=== PATIENT | male | born 1950 | race Caucasian/White ===

== ENCOUNTER → 2016-07-26 | Outpatient (CLI) | payer BC, MEDICARE ==
[~2016-07-26] MED LIST: /TIOT18INH INH; ACTIVITY; ASPI325T PO; ASPIRIN PO; ATROVENT; CEFT500T; DIET; ECOT325T5; FISH1000 PO; LISI20TA5; LISI20TA5 PO; MILKSUS; MULTIVIT PO; OMEP20TA7 PO; PLAV75TA2 PO; PRAV40TA; PRAVASTATIN PO; PRED10TA2; PRED20TA; PRIL20CA; THERGRAN; TRIC145T19 PO; VENTAER IN; VIT D 2000 PO; VITAMIN D; XOPE1.252; [UNRECOGNIZED DRUG - OTHER]; fish oil
[2016-07-26 07:36] LABS: ALBUMIN 4.1 GM/DL (3.2-5.2); ALBUMIN/GLOBULIN RATIO 1.21 (1.00-1.93); BILIRUBIN,TOTAL 0.4 MG/DL (0.2-1.0); CREATININE FOR GFR 1.49 MG/DL (0.70-1.30); GLOMERULAR FILTRATION RATE 50.1 (>49); POTASSIUM SERUM 4.5 MEQ/L (3.5-5.1); TOTAL PROTEIN 7.5 GM/DL (6.4-8.2)
[2016-07-26 07:44] LABS: MEAN CORPUSCULAR HEMOGLOBIN 30.8 pg (27.0-33.0); MEAN CORPUSCULAR HGB CONC 33.6 g/dl (32.0-36.5); MEAN CORPUSCULAR VOLUME 91.8 fl (80.0-96.0); RED CELL DISTRIBUTION WIDTH 13.8 % (11.5-14.5); WHITE BLOOD COUNT 7.5 K/mm3 (4.0-10.0)
== END ==
LOC: M LAB 06:10
PROVIDERS: ATTEND Family Medicine
DX: N18.3 Chronic kidney disease, stage 3 (moderate) (principal); E78.2 Mixed hyperlipidemia

== ENCOUNTER → 2017-03-23 | Outpatient (CLI) | payer BC, MEDICARE ==
--- NOTE | 2017-03-27 10:39 | SLEEPCENT ---
DATE OF PROCEDURE: 03/23/2017 ORDERED BY: Dr. Stu Ryan. Nocturnal polysomnography was performed for evaluation of sleep apnea syndrome symptoms in this patient with a history of excessive somnolence and snoring complicated by advanced obstructive lung disease and cardiac disease. 8 hours and 23 minutes of data were reviewed. There were 426 minutes of sleep identified. Sleep latency was normal at 8 minutes Rapid eye movement (REM) latency was normal at 63 minutes. Sleep architecture was fairly well preserved early in the study. Fragmentation entered later. Overall sleep efficiency was 85.5%. EKG showed a sinus rhythm with an average heart rate of 56 beats per minute. Rate variability was seen surrounding respiratory events. Rate ranged 40-80. EEG showed fairly normal wave forms for awake and sleep. Some mild alpha intrusion to non-REM stages. There were 130 respiratory events identified of 10 seconds in duration or greater for an apnea-hypopnea index of 18.3. The events were not exclusive to sleep stage nor body posture. There were primarily obstructive. Arousals from respiratory events occurred 8 times per hour. Oxygen desaturations were seen into the 80s. There was minimal limb activity and remaining measures of sleep physiology were normal. IMPRESSION: Moderate obstructive sleep apnea syndrome, (G47.33). Apnea-hypopnea index 18.3. RECOMMENDATION: The patient should be encouraged to return to the sleep disorder center or pressure therapy. In the interim, alcohol and sedative avoidance should be practiced and caution exercised during the operation of motor vehicles. cc: Gael Mead MD
== END ==
LOC: M SLEEP 20:00
PROVIDERS: ATTEND Internal Medicine Pulmonary Disease
DX: J44.9 Chronic obstructive pulmonary disease, unspecified (principal)

== ENCOUNTER → 2017-03-31 | Outpatient (CLI) | payer BC, MEDICARE ==
--- NOTE | 2017-03-31 18:28 | REP ---
Low-dose chest CT without contrast: History: Lung cancer screening study. Comparison screening CT study is from 04/18/2016. CT findings: Biapical pleuroparenchymal scarring is seen. A fairly advanced emphysematous changes are noted throughout the upper lobes. No new or progressive nodular density is seen. There is a granulomatous calcification in the left lower lobe just above the left hemidiaphragm. Some inspissated endobronchial secretions are seen in the left lower lobe. No other endobronchial abnormality is appreciated. There is evidence of a stent in the left common carotid artery unchanged. Impression: Negative low-dose screening chest CT. No change from 04/18/2016. Evidence of COPD. Signed by Jj White MD 03/31/2017 08:03 P
== END ==
LOC: M RAD 17:28
PROVIDERS: ATTEND Internal Medicine Pulmonary Disease
DX: J44.9 Chronic obstructive pulmonary disease, unspecified (principal)

== ENCOUNTER → 2017-06-18 | Outpatient (CLI) | payer BC, MEDICARE ==
[2017-06-18 06:58] LABS: MEAN CORPUSCULAR HEMOGLOBIN 31.4 pg (27.0-33.0); MEAN CORPUSCULAR HGB CONC 34.3 g/dl (32.0-36.5); MEAN CORPUSCULAR VOLUME 91.5 fl (80.0-96.0); PLATELET COUNT, AUTOMATED 225 10^3/uL (150-450); WHITE BLOOD COUNT 5.7 10^3/uL (4.0-10.0)
[2017-06-18 07:16] LABS: ALBUMIN 3.9 GM/DL (3.2-5.2); ALBUMIN/GLOBULIN RATIO 1.26 (1.00-1.93); BILIRUBIN,TOTAL 0.2 MG/DL (0.2-1.0); CALCIUM LEVEL 8.8 MG/DL (8.8-10.2); CREATININE FOR GFR 1.35 MG/DL (0.70-1.30); POTASSIUM SERUM 4.2 MEQ/L (3.5-5.1)
== END ==
LOC: M LAB 06:15
PROVIDERS: ATTEND Family Medicine
DX: I73.9 Peripheral vascular disease, unspecified (principal); N18.3 Chronic kidney disease, stage 3 (moderate); E78.2 Mixed hyperlipidemia

== ENCOUNTER → 2017-07-09 | Outpatient (CLI) | payer BC, MEDICARE | LOC: M RAD 17:04 | DX: G45.8 Other transient cerebral ischemic attacks and related syndromes (principal) | CPT/HCPCS: 93880 ==

== ENCOUNTER → 2018-01-30 | Outpatient (CLI) | payer BC, MEDICARE | LOC: M RAD 09:55 | DX: I65.23 Occlusion and stenosis of bilateral carotid arteries (principal); I70.0 Atherosclerosis of aorta; G45.8 Other transient cerebral ischemic attacks and related syndromes | CPT/HCPCS: 93880 ==

== ENCOUNTER → 2018-02-16 | Outpatient (CLI) | payer BC, MEDICARE ==
[2018-02-16 16:11] LABS: BASO % 0.6 % (0.0-1.0); EOS # 0.1 10^3/uL (0.0-0.50); EOS % 1.8 % (0.0-3.0); HEMATOCRIT 39.3 % (42.0-52.0); HEMOGLOBIN 13.4 g/dl (13.5-17.5); IMMATURE GRANULOCYTE % 0.4 % (0-3.0); LYMPH # 1.7 10^3/uL (1.5-4.5); LYMPH % 24.1 % (24.0-44.0); MEAN CORPUSCULAR HEMOGLOBIN 31.4 pg (27.0-33.0); MEAN CORPUSCULAR HGB CONC 34.1 g/dl (32.0-36.5); MONO # 0.6 10^3/uL (0.0-0.8); MONO % 7.9 % (0.0-5.0); NEUTROPHILS # 4.7 10^3/uL (1.8-7.7); NEUTROPHILS % 65.2 % (36.0-66.0); PLATELET COUNT, AUTOMATED 206 10^3/uL (150-450); RED BLOOD COUNT 4.27 10^6/uL (4.30-6.10); RED CELL DISTRIBUTION WIDTH 12.9 % (11.5-14.5); WHITE BLOOD COUNT 7.1 10^3/uL (4.0-10.0)
[2018-02-16 16:29] LABS: ANION GAP 5 MEQ/L (8-16); BLOOD UREA NITROGEN 16 MG/DL (7-18); CALCIUM LEVEL 8.6 MG/DL (8.8-10.2); CARBON DIOXIDE LEVEL 28 MEQ/L (21-32); CHLORIDE LEVEL 108 MEQ/L (98-107); CREATININE FOR GFR 1.26 MG/DL (0.70-1.30); GLOMERULAR FILTRATION RATE > 60.0 (>49); GLUCOSE, FASTING 81 MG/DL (70-100); SODIUM LEVEL 141 MEQ/L (136-145)
== END ==
LOC: M LAB 15:18
DX: I70.213 Atherosclerosis of native arteries of extremities with intermittent claudication, bilateral legs (principal); I65.23 Occlusion and stenosis of bilateral carotid arteries
CPT/HCPCS: 80048

== ENCOUNTER → 2018-02-25 | Outpatient (CLI) | payer BC, MEDICARE ==
[~2018-02-25] MED LIST changes: -/TIOT18INH INH; -ACTIVITY; -ASPI325T PO; -ASPIRIN PO; -ATROVENT; -CEFT500T; -DIET; -ECOT325T5; -FISH1000 PO; +HEPARIN 1,000 UNITS/ML 10ML VIAL (FOR RADIOLOGY& DIALYSIS ONLY) As Ordered; +ISOVUE-300 61% 50ML VIAL (Q9967) As Ordered; +LIDOCAINE 2% MDV 20 ML VIAL As Ordered; -LISI20TA5; -LISI20TA5 PO; +MIDAZOLAM INJ 2 MG/2 ML VIAL (J2250) As Ordered; -MILKSUS; -MULTIVIT PO; -OMEP20TA7 PO; -PLAV75TA2 PO; -PRAV40TA; -PRAVASTATIN PO; -PRED10TA2; -PRED20TA; -PRIL20CA; -THERGRAN; -TRIC145T19 PO; -VENTAER IN; -VIT D 2000 PO; -VITAMIN D; -XOPE1.252; -[UNRECOGNIZED DRUG - OTHER]; +fentaNYL 100 MCG/2 ML INJECTION (J3010) As Ordered; -fish oil
== END | disposition home or self-care (01) ==
LOC: M IRPRO 06:31
DX: I70.212 Atherosclerosis of native arteries of extremities with intermittent claudication, left leg (principal); I10 Essential (primary) hypertension; J44.9 Chronic obstructive pulmonary disease, unspecified; I25.10 Atherosclerotic heart disease of native coronary artery without angina pectoris; E78.00 Pure hypercholesterolemia, unspecified; Z95.828 Presence of other vascular implants and grafts; Z86.73 Personal history of transient ischemic attack (TIA), and cerebral infarction without residual deficits
CPT/HCPCS: 37224

== ENCOUNTER → 2018-03-18 | Outpatient (CLI) | payer BC, MEDICARE ==
[~2018-03-18] MED LIST changes: -HEPARIN 1,000 UNITS/ML 10ML VIAL (FOR RADIOLOGY& DIALYSIS ONLY) As Ordered; -ISOVUE-300 61% 50ML VIAL (Q9967) As Ordered; +ISOVUE-370 76% 100ML VIAL (Q9967) As Ordered; -LIDOCAINE 2% MDV 20 ML VIAL As Ordered; -MIDAZOLAM INJ 2 MG/2 ML VIAL (J2250) As Ordered; -fentaNYL 100 MCG/2 ML INJECTION (J3010) As Ordered
== END ==
LOC: M RAD 13:49
DX: I65.23 Occlusion and stenosis of bilateral carotid arteries (principal); I74.2 Embolism and thrombosis of arteries of the upper extremities; Z95.5 Presence of coronary angioplasty implant and graft
CPT/HCPCS: Q9967

== ENCOUNTER → 2018-03-31 | Outpatient (CLI) | payer BC, MEDICARE ==
[~2018-03-31] MED LIST changes: +ISOVUE-300 61% 50ML VIAL (Q9967) As Ordered; -ISOVUE-370 76% 100ML VIAL (Q9967) As Ordered; +LIDOCAINE 2% MDV 20 ML VIAL As Ordered; +MIDAZOLAM INJ 2 MG/2 ML VIAL (J2250) As Ordered; +fentaNYL 100 MCG/2 ML INJECTION (J3010) As Ordered
== END | disposition home or self-care (01) ==
LOC: M IRPRO 07:36
DX: I70.211 Atherosclerosis of native arteries of extremities with intermittent claudication, right leg (principal); I70.0 Atherosclerosis of aorta; Z87.891 Personal history of nicotine dependence; Z95.820 Peripheral vascular angioplasty status with implants and grafts
CPT/HCPCS: 37224

== ENCOUNTER → 2018-04-16 | Outpatient (CLI) | payer BC, MEDICARE | LOC: M RAD 06:31 | DX: I70.213 Atherosclerosis of native arteries of extremities with intermittent claudication, bilateral legs (principal) | CPT/HCPCS: 93925 ==

== ENCOUNTER → 2018-05-04 | Outpatient (REF) | payer BC, MEDICARE | LOC: M LAB REF 13:21 | DX: R05 Cough (principal); J44.9 Chronic obstructive pulmonary disease, unspecified | CPT/HCPCS: 87205 ==

== ENCOUNTER → 2018-06-09 | Outpatient (CLI) | payer BC, MEDICARE ==
[2018-06-09 07:05] LABS: HEMATOCRIT 40.5 % (42.0-52.0); HEMOGLOBIN 13.9 g/dl (13.5-17.5); MEAN CORPUSCULAR HEMOGLOBIN 31.3 pg (27.0-33.0); MEAN CORPUSCULAR HGB CONC 34.3 g/dl (32.0-36.5); MEAN CORPUSCULAR VOLUME 91.2 fl (80.0-96.0); PLATELET COUNT, AUTOMATED 333 10^3/uL (150-450); RED BLOOD COUNT 4.44 10^6/uL (4.30-6.10); RED CELL DISTRIBUTION WIDTH 12.9 % (11.5-14.5); WHITE BLOOD COUNT 6.7 10^3/uL (4.0-10.0)
[2018-06-09 07:30] LABS: ALBUMIN 3.8 GM/DL (3.2-5.2); ALBUMIN/GLOBULIN RATIO 1.19 (1.00-1.93); ALKALINE PHOSPHATASE 85 U/L (45-117); ALT/SGPT 25 U/L (12-78); ANION GAP 7 MEQ/L (8-16); AST/SGOT 19 U/L (7-37); BILIRUBIN,TOTAL 0.3 MG/DL (0.2-1.0); BLOOD UREA NITROGEN 23 MG/DL (7-18); CARBON DIOXIDE LEVEL 26 MEQ/L (21-32); CHLORIDE LEVEL 106 MEQ/L (98-107); CHOLESTEROL LEVEL 154 MG/DL (<200); CHOLESTEROL RISK RATIO 3.581 (<5); CREATININE FOR GFR 1.39 MG/DL (0.70-1.30); GLOMERULAR FILTRATION RATE 53.9 (>49); GLUCOSE, FASTING 98 MG/DL (70-100); HDL CHOLESTEROL 43 MG/DL (>40); LDL CHOLESTEROL 85 MG/DL (<100); MAGNESIUM LEVEL 2.1 MG/DL (1.8-2.4); NON-HDL-C 111 MG/DL; POTASSIUM SERUM 4.1 MEQ/L (3.5-5.1); SODIUM LEVEL 139 MEQ/L (136-145); TRIGLYCERIDES LEVEL 129 MG/DL (<150)
[2018-06-09 09:16] LABS: TOTAL 25(OH) VITAMIN D 54.3 NG/ML (30.0-100.0)
== END ==
LOC: M LAB 06:01
DX: I73.9 Peripheral vascular disease, unspecified (principal); E78.2 Mixed hyperlipidemia; I11.9 Hypertensive heart disease without heart failure; N18.3 Chronic kidney disease, stage 3 (moderate)
CPT/HCPCS: 83735

== ENCOUNTER 2018-06-11 07:50 | Day surgery (SDC) | payer BC, MEDICARE ==
[~2018-06-11] VITALS: Ht 172.7 cm; Wt 77.1 kg
[~2018-06-11 07:50] MED LIST changes: +/TIOT18INH INH; +ACTIVITY; +AMLO2.5T3 PO; +ASPI1TAB20 PO; +ASPI325T PO; +ASPIRIN PO; +ATROVENT; +CEFT500T; +DIET; +ECOT325T5; +FISH1000 PO; +FLOM0.4C39 PO; -ISOVUE-300 61% 50ML VIAL (Q9967) As Ordered; -LIDOCAINE 2% MDV 20 ML VIAL As Ordered; +LISI20TA5; +LISI20TA5 PO; +LOSA100T50 PO; -MIDAZOLAM INJ 2 MG/2 ML VIAL (J2250) As Ordered; +MILKSUS; +MULTIVIT PO; +NITR4TASL SL; +NS 1,000 ML IV ONE; +OMEP20CA3 PO; +OMEP20TA7 PO; +PLAV75TA2 PO; +PRAV40TA; +PRAV40TA2 PO; +PRAVASTATIN PO; +PRED10TA2; +PRED20TA; +PRIL20CA; +PROPOFOL 200 MG/20 ML VIAL As Ordered ONE; +THERGRAN; +TRIC145T19 PO; +VENTAER IN; +VENTAER INH; +VIT D 2000 PO; +VITA100067 PO; +VITAMIN D; +XOPE1.252; +[UNRECOGNIZED DRUG - OTHER]; -fentaNYL 100 MCG/2 ML INJECTION (J3010) As Ordered; +fish oil
--- NOTE | 2018-06-11 09:24 | ROOR ---
Patient Name: Stu Warner Procedure Date: 06/11/2018 8:54 AM Date of : 1950 Age: 67 Room: [facility] Gender: Male Note Status: Finalized Procedure: Colonoscopy Indications: High risk colon cancer surveillance: Personal history of colonic polyps, Last colonoscopy: January 2013 Providers: Stu BOSE MD Referring MD: Gael Mead MD Requesting Provider: Medicines: Monitored Anesthesia Care Complications: No immediate complications. Procedure: Pre-Anesthesia Assessment: - The heart rate, respiratory rate, oxygen saturations, blood pressure, adequacy of pulmonary ventilation, and response to care were monitored throughout the procedure. The Colonoscope was introduced through the anus and advanced to the terminal ileum, with identification of the appendiceal orifice and IC valve. The colonoscopy was performed without difficulty. The patient tolerated the procedure well. The quality of the bowel preparation was good. Findings: The perianal and digital rectal examinations were normal. One 8 mm centrally depressed mucosal nodule was found in the cecum. (diverticulum vs polyp next to/separate from appendiceal orifice). Biopsies were taken with a cold forceps for histology. Two sessile polyps were found in the ascending colon. The polyps were diminutive in size. These polyps were removed with a cold snare. Resection and retrieval were complete. Mild to moderate sigmoid diverticulosis and small internal hemorrhoids. The exam was otherwise without abnormality on direct and retroflexion views. Impression: - 8 mm centrally depressed mucosal nodule in the cecum. Biopsied. - Two diminutive polyps in the ascending colon, removed with a cold snare. Resected and retrieved. - Mild to moderate sigmoid diverticulosis and small internal hemorrhoids. - The examination was otherwise normal on direct and retroflexion views. Recommendation: - Await pathology results. - Telephone endoscopist for pathology results in 2 weeks. Stu Bose MD Stu BOSE MD 06/11/2018 9:24:03 AM This report has been signed electronically. Number of Addenda: 0 Note Initiated On: 06/11/2018 8:54 AM Estimated Blood Loss: Estimated blood loss: none.
[2018-06-11 09:40] VITALS: BP 106/66
== END 2018-06-11 09:48 | disposition home or self-care (01) ==
LOC: M OPP 07:50
PROVIDERS: ATTEND Internal Medicine Gastroenterology
DX: D12.2 Benign neoplasm of ascending colon (principal); K57.30 Diverticulosis of large intestine without perforation or abscess without bleeding; K64.8 Other hemorrhoids; K63.89 Other specified diseases of intestine; Z86.010 Personal history of colon polyps

== ENCOUNTER → 2018-07-14 | Outpatient (CLI) | payer MEDICARE ==
[~2018-07-14] MED LIST changes: -NS 1,000 ML IV ONE; -PROPOFOL 200 MG/20 ML VIAL As Ordered ONE
--- NOTE | 2018-07-14 15:12 | REP ---
LOW-DOSE LUNG SCREENING CT: 07/14/2018 COMPARISON: 03/31/2017, 04/18/2016. CLINICAL HISTORY: History of nicotine dependence, lung cancer screening CT. FINDINGS: Standard low dose screening technique utilized with lung windows only performed per protocol. Study again shows pleuroparenchymal scarring in both upper lung zones, unchanged. There is COPD with bullous emphysematous change in the apices and central lobular emphysema throughout. Some mild underlying fibrotic changes are noted. 7 mm nodule posterolaterally in the right upper lung zone seen on image 30 is unchanged. Some minor fibrotic and dependent atelectatic changes are seen in the deep sulci bilaterally without nodules or consolidation. No pleural effusion. 4.6 mm nodule between the mid axillary line and anterior axillary line on image 85 in the left lower lobe, not visible on previous studies. There is a semi-solid 5 mm nodule in the superior lingular segment of the left upper lobe on image 59, also new. No other new or significant findings. No effusion, pleural thickening or pneumothorax. No other significant finding. IMPRESSION: 1. New 5 mm nodules in the left upper left lower lobe peripherally as described. Stable appearance of 7 mm pleural-based nodule on the left and some apical pleuroparenchymal scarring with emphysematous changes as before. 2. The study is best characterized as a long Lung RADS category 3, probably benign. New 4-6 mm nodules as described compared to the baseline exam. Followup recommendation in 6 months for low-dose CT screening. Patients with these findings have a 1-2% of malignancy at the time of this examination. Electronically Signed by Brent Collier MD 07/14/2018 08:50 P
== END ==
LOC: M RAD 08:29
PROVIDERS: ATTEND Internal Medicine Pulmonary Disease
DX: Z12.2 Encounter for screening for malignant neoplasm of respiratory organs (principal); J44.9 Chronic obstructive pulmonary disease, unspecified; Z87.891 Personal history of nicotine dependence; R91.8 Other nonspecific abnormal finding of lung field

== ENCOUNTER 2018-08-04 08:29 | Day surgery (SDC) | payer MEDICARE ==
[~2018-08-04] VITALS: Ht 172.7 cm; Wt 77.5 kg
[~2018-08-04 08:29] MED LIST changes: +NS 1,000 ML IV ONE; +STIO1AER IN
[2018-08-04] MEDS ORDERED: PROPOFOL 200 MG/20 ML VIAL As Ordered ONE (10:46)
[2018-08-04] MEDS ORDERED: LIDOCAINE 2% INJ 100 MG/5 ML SDV (FOR ANES.) As Ordered ONE (10:46)
--- NOTE | 2018-08-04 11:12 | ROOR ---
Patient Name: Stu Warner Procedure Date: 08/04/2018 10:41 AM Date of : 1950 Age: 67 Room: [facility] Gender: Male Note Status: Finalized Procedure: Colonoscopy Indications: Therapeutic procedure for colon polyps, Therapeutic procedure for known colon adenoma Providers: Stu BOSE MD Referring MD: Gael Mead MD Requesting Provider: Medicines: Monitored Anesthesia Care Complications: No immediate complications. Procedure: Pre-Anesthesia Assessment: - The heart rate, respiratory rate, oxygen saturations, blood pressure, adequacy of pulmonary ventilation, and response to care were monitored throughout the procedure. The Colonoscope was introduced through the anus and advanced to the cecum, identified by appendiceal orifice and ileocecal valve. The colonoscopy was performed without difficulty. The patient tolerated the procedure well. The quality of the bowel preparation was fair. Findings: The perianal and digital rectal examinations were normal. A 8 mm polyp was found in the cecum. The polyp was sessile and umbilicated. The polyp was removed with a piecemeal technique using a cold snare. Resection and retrieval were complete. To prevent bleeding after the polypectomy, four hemostatic clips were successfully placed (MR conditional). There was no bleeding at the end of the procedure. Multiple medium-mouthed diverticula were found in the sigmoid colon. Internal hemorrhoids were found during retroflexion. The hemorrhoids were medium-sized. The exam was otherwise without abnormality on direct and retroflexion views. Impression: - Preparation of the colon was fair. - One 8 mm polyp in the cecum, removed piecemeal using a cold snare. Resected and retrieved. Clips (MR conditional) were placed. - Diverticulosis in the sigmoid colon. - Internal hemorrhoids. - The examination was otherwise normal on direct and retroflexion views. Recommendation: - Telephone endoscopist for pathology results in 2 weeks. - Repeat colonoscopy in 3 years for surveillance. Stu Bose MD Stu BOSE MD 08/04/2018 11:12:24 AM This report has been signed electronically. Number of Addenda: 0 Note Initiated On: 08/04/2018 10:41 AM Estimated Blood Loss: Estimated blood loss: none.
[2018-08-04 11:42] VITALS: BP 110/54
== END 2018-08-04 11:52 | disposition home or self-care (01) ==
LOC: M OPP 08:29
PROVIDERS: ATTEND Internal Medicine Gastroenterology
DX: K64.8 Other hemorrhoids (principal); D12.0 Benign neoplasm of cecum; D12.6 Benign neoplasm of colon, unspecified; K57.30 Diverticulosis of large intestine without perforation or abscess without bleeding; G47.30 Sleep apnea, unspecified; J44.9 Chronic obstructive pulmonary disease, unspecified; Z79.82 Long term (current) use of aspirin; Z79.899 Other long term (current) drug therapy; Z88.8 Allergy status to other drugs, medicaments and biological substances; Z87.891 Personal history of nicotine dependence

== ENCOUNTER → 2018-08-05 | Outpatient (REF) | payer MEDICARE ==
[~2018-08-05] MED LIST changes: -NS 1,000 ML IV ONE
== END ==
LOC: M LAB REF 13:05
PROVIDERS: ATTEND Internal Medicine Pulmonary Disease
DX: J44.1 Chronic obstructive pulmonary disease with (acute) exacerbation (principal)

== ENCOUNTER → 2018-09-22 | Outpatient (REF) | payer MEDICARE | LOC: M LAB REF 13:18 | PROVIDERS: ATTEND Internal Medicine Pulmonary Disease | DX: J44.1 Chronic obstructive pulmonary disease with (acute) exacerbation (principal) ==

== ENCOUNTER → 2019-01-29 | Outpatient (CLI) | payer MEDICARE ==
[~2019-01-29] MED LIST changes: -/TIOT18INH INH; +ASPI-524 PO; -ASPI1TAB20 PO; -OMEP20CA3 PO; +OMEP20CA4 PO; +SPIR1CAP INH
--- NOTE | 2019-01-29 13:02 | REP ---
Clinical: Cough. Technique: Axial noncontrast images from the thoracic inlet to the upper abdomen with coronal and sagittal re-formations. Comparison: 04/18/2016 Findings: Lung ramsay demonstrate advanced COPD and emphysematous changes with biapical scarring including stable noncalcified areas of density along the posterior apices unchanged compared to 2016 as well as small subpleural nodular densities along the with right posterior hemithorax and anterior left upper lobe scarring which also remains stable. No acute consolidation, obvious acute nodule or mass lesion. No effusion. No pneumothorax. Tracheobronchial tree is relatively patent. The mediastinum demonstrates atherosclerotic changes to the aorta and coronary arteries without aortic aneurysm or cardiomegaly. No pericardial effusion. No adenopathy. Musculoskeletal structures are intact. Impression: Advanced COPD/emphysematous changes and chronic stable scarring and areas of nodularity unchanged compared through 2016. Electronically Signed by Delfino Gannon MD 01/29/2019 12:53 P
== END ==
LOC: M RAD 12:30
PROVIDERS: ATTEND Internal Medicine Pulmonary Disease
DX: J44.9 Chronic obstructive pulmonary disease, unspecified (principal); R05 Cough

== ENCOUNTER → 2019-02-19 | Outpatient (CLI) | payer MEDICARE ==
[~2019-02-19] MED LIST changes: -ASPI-524 PO; +ASPI325T57 PO; +OMEP1CAP73 PO; -OMEP20CA4 PO
[2019-02-19 07:54] LABS: CALCIUM LEVEL 8.8 MG/DL (8.8-10.2); CREATININE FOR GFR 1.32 MG/DL (0.70-1.30); GLOMERULAR FILTRATION RATE 57.1 (>42); POTASSIUM SERUM 4.2 MEQ/L (3.5-5.1)
[2019-02-19 09:17] LABS: MALB URINE SIEMENS 12.5 MG/L; MAU/CREAT RATIO 8.4 MCG/MG (0.0-30.0)
== END ==
LOC: M LAB 06:35
PROVIDERS: ATTEND Internal Medicine Cardiovascular Disease
DX: E78.00 Pure hypercholesterolemia, unspecified (principal); I10 Essential (primary) hypertension

== ENCOUNTER → 2019-07-08 | Outpatient (CLI) | payer MEDICARE ==
[~2019-07-08] MED LIST changes: +OMEP-172 PO; -OMEP1CAP73 PO
[2019-07-08 07:11] LABS: HEMATOCRIT 42.9 % (42.0-52.0); HEMOGLOBIN 14.8 g/dl (13.5-17.5); MEAN CORPUSCULAR HEMOGLOBIN 31.3 pg (27.0-33.0); MEAN CORPUSCULAR HGB CONC 34.5 g/dl (32.0-36.5); MEAN CORPUSCULAR VOLUME 90.7 fl (80.0-96.0); PLATELET COUNT, AUTOMATED 224 10^3/uL (150-450); RED BLOOD COUNT 4.73 10^6/uL (4.30-6.10); WHITE BLOOD COUNT 6.3 10^3/uL (4.0-10.0)
[2019-07-08 08:46] LABS: ALBUMIN 4.2 GM/DL (3.2-5.2); BILIRUBIN,TOTAL 0.5 MG/DL (0.2-1.0); CALCIUM LEVEL 8.9 MG/DL (8.8-10.2); CHOLESTEROL RISK RATIO 2.729 (<5); CREATININE FOR GFR 1.44 MG/DL (0.70-1.30); GLOMERULAR FILTRATION RATE 51.6 (>42); TOTAL PROTEIN 7.3 GM/DL (6.4-8.2)
== END ==
LOC: M LAB 06:48
PROVIDERS: ATTEND Family Medicine
DX: I73.9 Peripheral vascular disease, unspecified (principal); E78.2 Mixed hyperlipidemia; Z12.5 Encounter for screening for malignant neoplasm of prostate
CPT/HCPCS: 36415; 80053; 80061; 85027; G0103

== ENCOUNTER → 2019-09-06 | Outpatient (REF) | payer MEDICARE ==
[~2019-09-06] MED LIST changes: -OMEP-172 PO; +OMEP1CAP73 PO
[2019-09-06 09:24] LABS: CREATININE FOR GFR 1.35 MG/DL (0.70-1.30); GLOMERULAR FILTRATION RATE 55.5 (>42)
== END ==
LOC: M LAB REF 09:06
PROVIDERS: ATTEND Internal Medicine Pulmonary Disease
DX: J44.9 Chronic obstructive pulmonary disease, unspecified (principal)

== ENCOUNTER → 2019-09-06 | Outpatient (CLI) | payer MEDICARE | LOC: M LAB 06:35 | PROVIDERS: ATTEND Internal Medicine Cardiovascular Disease | DX: R06.02 Shortness of breath (principal); J44.9 Chronic obstructive pulmonary disease, unspecified ==

== ENCOUNTER → 2019-09-15 | Outpatient (CLI) | payer MEDICARE ==
[~2019-09-15] MED LIST changes: +ISOVUE-370 76% 100ML VIAL (Q9967) As Ordered ONE
--- NOTE | 2019-09-15 13:52 | REP ---
REASON FOR EXAM: Followup chronic changes. All prior chest CTs were reviewed, the latest of which is dated 01/29/2019. CONTRAST TODAY: 100 mL of Isovue 370. The mediastinum and pulmonary carloz are unchanged. No mass or adenopathy has developed. There is no significant change in the appearance of the imaged upper abdomen or imaged osseous structures. Evaluation of the lung ramsay again shows heavy biapical pleuroparenchymal scarring status quo. The lung ramsay are again seen to be hyperexpanded status quo. There is evidence of early cylindrical bronchiectasis with basilar predominance essentially unchanged. In the left lower lobe there is a new asymmetric somewhat ground glass appearing 1.7 cm sized density. There are no other new abnormal nodules, masses, or opacities. IMPRESSION: 1. New asymmetric density in the left lower lobe as described above. According to the revised Fleischner's Society criteria consideration should be made for PET/CT at this time if clinically relevant. 2. Chronic lung field changes as described above. Electronically Signed by Speedy Estrada DO 09/15/2019 03:22 P
== END ==
LOC: M RAD 12:38
PROVIDERS: ATTEND Internal Medicine Pulmonary Disease
DX: R91.8 Other nonspecific abnormal finding of lung field (principal)
CPT/HCPCS: 71260; Q9967

== ENCOUNTER → 2019-11-17 | Outpatient (REF) | payer MEDICARE ==
[~2019-11-17] MED LIST changes: -ISOVUE-370 76% 100ML VIAL (Q9967) As Ordered ONE
[2019-11-17 19:09] LABS: BLOOD UREA NITROGEN 18 MG/DL (7-18); CREATININE FOR GFR 1.25 MG/DL (0.70-1.30); GLOMERULAR FILTRATION RATE > 60.0 (>42)
== END ==
LOC: M LAB REF 16:49
PROVIDERS: ATTEND Internal Medicine Pulmonary Disease
DX: J44.9 Chronic obstructive pulmonary disease, unspecified (principal)

== ENCOUNTER → 2019-12-07 | Outpatient (CLI) | payer MEDICARE ==
[~2019-12-07] MED LIST changes: +ISOVUE-370 76% 100ML VIAL As Ordered ONE
--- NOTE | 2019-12-07 13:39 | REP ---
REASON: History of COPD. All prior chest CTs have been reviewed, the latest of which is dated 09/15/2019. CONTRAST: 100 mL Isovue 370. The mediastinum and pulmonary carloz are stable. No mass or adenopathy has developed. There are no pleural or pericardial effusions. The imaged osseous structures and the imaged upper abdomen are stable. The new asymmetric density seen on the latest prior exam of 09/15/2019 in the left lower lobe has resolved. There are no new abnormal nodules, masses or opacities. Chronic lung field changes with heavy biapical pleuroparenchymal scarring, cylindrical bronchiectasis, scattered areas of asymmetric pleural thickening, lung field hyperexpansion, pleural blebs, and parenchymal bulla all appear stable. IMPRESSION: 1. Resolved left lower lobe opacity as described above. 2. Stable appearing chronic lung field changes as described above. Electronically Signed by Speedy Estrada DO 12/07/2019 02:24 P
== END ==
LOC: M RAD 08:18
PROVIDERS: ATTEND Internal Medicine Pulmonary Disease
DX: J44.9 Chronic obstructive pulmonary disease, unspecified (principal)
CPT/HCPCS: 71260; Q9967

== ENCOUNTER → 2020-02-23 | Outpatient (CLI) | payer MEDICARE ==
[~2020-02-23] MED LIST changes: -ISOVUE-370 76% 100ML VIAL As Ordered ONE
--- NOTE | 2020-03-02 12:42 | REP ---
ABDOMINAL AORTIC SONOGRAPHY WITH DOPPLER: HISTORY: Evaluate aorta. Aortofemoral bypass graft. FINDINGS: The abdominal aorta measures 2.4 x 2.3 cm in AP by transverse dimension respectively at the proximal diaphragmatic hiatus. The aorta could not be observed at the renal artery level due to abdominal gas. Mid-aortic AP dimension is 1.7 cm. The distal aorta measures 1.9 x 2.3 cm. No aneurysm is seen. There is a bilateral aorto-bifemoral bypass graft. This is patent. Peak systolic flow velocity in the distal aorta above the graft is 84 cm/s. Biphasic wave forms are noted in both limbs of the graft. Peak systolic flow velocity in the right proximal iliac graft is 111 cm and in the pre-anastomotic distal graft, 145 cm. These values are 90 cm/s and 190 cm/s respectively in the left graft limb. IMPRESSION: Status post aorto-bifemoral bypass grafts, both limbs patent, as above. No aneurysm seen. MTDD
--- NOTE | 2020-03-02 12:44 | REP ---
BILATERAL LOWER EXTREMITY ARTERIAL DOPPLER ULTRASOUND HISTORY: Follow-up stenosis. FINDINGS: Ankle branchial indices are normal measured 1.4 on the right and 1.2 on the left. Moderate plaquing is again observed. No significant stenosis is seen on either side. Ankle brachial indices may not be reliable due to subclavian occlusion and common carotid artery to subclavian bypass graft on the left. Left brachial pressure is lower than the right. Biphasic Doppler waveforms are seen in the arterial tree of both lower extremities. BILATERAL LOWER EXTREMITY ARTERIAL VELOCITY CHART PSV RIGHT (cm/s) PSV LEFT (cm/s) MEDICAL SUPERVISOR 181 101 Profunda 110 90 Proximal SFA 121 115 Mid-SFA 80 102 Distal SFA 87 65 Popliteal 65 65 Proximal JOHN 87 66 Tibioperoneal trunk 38 51 Proximal LOBBY ATTENDANT 80 66 Distal LOBBY ATTENDANT 71 82 Distal JOHN 86 85 MTDD
--- NOTE | 2020-03-02 12:47 | REP ---
DUPLEX CAROTID SONOGRAPHY HISTORY: Atherosclerosis of the arteries. Follow-up stenosis. COMPARISON: Carotid sonography 01/30/2018. FINDINGS: Antegrade flow is observed in the right vertebral artery. Left vertebral artery flow could not be observed. There is a patent right common carotid artery to subclavian artery bypass graft. There is moderate mixed plaquing in the bulb and proximal ICA on the left. VELOCITY CHART LEFT CAROTID PSV EDV CCA 110 cm/s ICA 79 cm/s 26 cm/s ECA 133 cm/s ICA/CCA ratio 0.72 (normal) IMPRESSION: Less than 50% category narrowing in the left internal carotid artery (ICA) by Doppler velocity criteria. Patent left common carotid artery (CCA) to subclavian artery graft. There is mild mixed plaquing in the common carotid artery (CCA) on the right. Odah-bs-[id number] mixed plaquing is seen in the proximal internal carotid artery (ICA) and proximal external carotid artery (ECA) on the right side. Color flow and spectral Doppler interrogation are unremarkable on the right. VELOCITY CHART RIGHT CAROTID PSV EDV CCA 66 cm/s ICA 63 cm/s 18 cm/s ECA 111 cm/s ICA/CCA ratio 0.95 (normal) IMPRESSION: Less than 50% category narrowing in the right internal carotid artery (ICA) by Doppler velocity criteria. Doppler velocities have not increased significantly on either side. MTDD
== END ==
LOC: M RAD 06:34
PROVIDERS: ATTEND Physician Assistant
DX: I70.213 Atherosclerosis of native arteries of extremities with intermittent claudication, bilateral legs (principal); I70.0 Atherosclerosis of aorta; I65.23 Occlusion and stenosis of bilateral carotid arteries; Z95.820 Peripheral vascular angioplasty status with implants and grafts

== ENCOUNTER → 2020-07-06 | Outpatient (CLI) | payer MEDICARE ==
[2020-07-06 10:43] LABS: HEMOGLOBIN 14.2 g/dl (13.5-17.5); MEAN CORPUSCULAR HEMOGLOBIN 30.9 pg (27.0-33.0); MEAN CORPUSCULAR HGB CONC 33.8 g/dl (32.0-36.5); MEAN CORPUSCULAR VOLUME 91.3 fl (80.0-96.0); PLATELET COUNT, AUTOMATED 226 10^3/uL (150-450); WHITE BLOOD COUNT 5.6 10^3/uL (4.0-10.0)
[2020-07-06 11:17] LABS: ALBUMIN 4.4 GM/DL (3.2-5.2); ALT/SGPT 28 U/L (12-78); BILIRUBIN,TOTAL 0.6 MG/DL (0.2-1.0); BLOOD UREA NITROGEN 21 MG/DL (7-18); CARBON DIOXIDE LEVEL 30 MEQ/L (21-32); CHLORIDE LEVEL 107 MEQ/L (98-107); CHOLESTEROL LEVEL 137 MG/DL (<200); CREATININE FOR GFR 1.25 MG/DL (0.70-1.30); FREE T4 0.97 NG/DL (0.76-1.46); GLOMERULAR FILTRATION RATE > 60.0 (>42); GLUCOSE, FASTING 99 MG/DL (70-100); HDL CHOLESTEROL 50 MG/DL (>40); LDL CHOLESTEROL 65 MG/DL (<100); NON-HDL-C 87 MG/DL; SODIUM LEVEL 139 MEQ/L (136-145); TOTAL PROTEIN 7.1 GM/DL (6.4-8.2); TRIGLYCERIDES LEVEL 109 MG/DL (<150)
== END ==
LOC: M WUC 08:22
PROVIDERS: ATTEND Family Medicine
DX: I73.9 Peripheral vascular disease, unspecified (principal); E78.2 Mixed hyperlipidemia; I11.9 Hypertensive heart disease without heart failure; Z12.5 Encounter for screening for malignant neoplasm of prostate
CPT/HCPCS: 36415; 80053; 80061; 84439; 84443; 85027; G0103

== ENCOUNTER → 2020-08-25 | Outpatient (CLI) | payer MEDICARE ==
[2020-08-25 16:43] LABS: FREE T4 0.92 NG/DL (0.76-1.46); THYROID STIMULATING HORMONE 3.21 uIU/ML (0.358-3.740)
== END ==
LOC: M WUC 10:23
PROVIDERS: ATTEND Family Medicine
DX: E03.9 Hypothyroidism, unspecified (principal)

== ENCOUNTER → 2020-09-21 | Outpatient (CLI) | payer MEDICARE ==
--- NOTE | 2020-09-21 11:04 | REP ---
INDICATION: ATHSCL [place] ART W/ CLAUDICATION CAROTID STENOSIS COMPARISON: Comparison study February 23, 2020.. TECHNIQUE: Real-time ultrasound evaluation and duplex Doppler interrogation of the extracranial carotid vasculature is performed. FINDINGS: Antegrade flow is observed in both vertebral arteries. Right carotid: The right common carotid artery shows diffuse intimal thickening but is otherwise unremarkable. There mild to moderate mixed plaquing in the right carotid bulb and proximal ICA on two-dimensional scanning. Color flow and spectral Doppler interrogation are unremarkable on the right. Velocity chart right carotid: Right CCA PSV: 78 cm/S Right ICA PSV: 82 cm/S Right ICA EDV: 25 cm/S Right ECA PSV: 132 cm/S Right ICA/CCA ratio: 1.05 Left carotid: The left common carotid artery shows diffuse intimal thickening. In the proximal common carotid artery on the left there is an area of widening visualized at the lower margin of this ultrasound alxsh-xi-sczj today which is felt to be the level of the proximal anastomosis of the left common carotid artery to left subclavian artery graft. This area should is patent on color Doppler. The graft is was not visualized with today's sonography.. There is mild to moderate mixed plaquing in the left carotid bulb and proximal ICA on two-dimensional scanning. Color flow and spectral Doppler interrogation are unremarkable on the left. Velocity chart left carotid: Left CCA PSV: 114 cm/S Left ICA PSV: 81 cm/S Left ICA EDV: 26 cm/S Left ECA PSV: 130 cm/S Left ICA/CCA ratio: 0.71 IMPRESSION: Less than 50% category narrowing in the right internal carotid artery by Doppler velocity criteria. ICA velocities have not increased in the interval since the prior study. Less than 50% category narrowing in the left ICA by Doppler velocity criteria. ICA velocities have not increased on the left in the interval since the prior study. <Electronically signed by Kai White > 09/21/20 1100
--- NOTE | 2020-09-21 11:06 | REP ---
INDICATION: ATHSCL [facility] ART W/ CLAUDICATION CAROTID STENOSIS COMPARISON: 02/23/2020. TECHNIQUE: Real time guzman scale and Duplex Doppler evaluation of the bilateral lower extremity arterial vasculature using linear high frequency transducer. FINDINGS: Guzman scale and duplex doppler images demonstrate moderate amounts of atheromatous plaquing with areas of mild narrowing but no focal stenosis identified. There is no occlusion. Doppler interrogation demonstrates biphasic arterial wave forms and normal velocities bilaterally. NURIS right 0.7 and left 1.0. Peak systolic velocities (cm/sec) Common femoral artery: Right 199; Left 104 Profunda femoris: Right 176; Left 99 SFA (proximal): Right 146; Left 116 SFA (mid): Right 145; Left 141 SFA (distal): Right 128; Left 138 Popliteal artery: Right 98; Left 100 JOHN (prox.): Right 124; Left 117 Tibioperoneal trunk: Right 46; Left 63 VOCATIONAL TRAINER (prox.): Right 62; Left 91 VOCATIONAL TRAINER (distal): Right 77; Left 74 JOHN (distal): Right 75; Left 101 IMPRESSION: Atheromatous changes with areas of narrowing but no focal occlusion or stenosis. <Electronically signed by Vincent Guzman > 09/21/20 1103
== END ==
LOC: M RAD 09:10
PROVIDERS: ATTEND Physician Assistant
DX: I70.213 Atherosclerosis of native arteries of extremities with intermittent claudication, bilateral legs (principal); I65.23 Occlusion and stenosis of bilateral carotid arteries

== ENCOUNTER → 2020-10-27 | Outpatient (CLI) | payer MEDICARE ==
[2020-10-27 11:57] LABS: HEMATOCRIT 42.5 % (42.0-52.0); HEMOGLOBIN 14.2 g/dl (13.5-17.5); MEAN CORPUSCULAR HEMOGLOBIN 30.9 pg (27.0-33.0); MEAN CORPUSCULAR HGB CONC 33.4 g/dl (32.0-36.5); MEAN CORPUSCULAR VOLUME 92.4 fl (80.0-96.0); PLATELET COUNT, AUTOMATED 210 10^3/uL (150-450); WHITE BLOOD COUNT 5.4 10^3/uL (4.0-10.0)
[2020-10-27 12:17] LABS: BLOOD UREA NITROGEN 15 MG/DL (7-18); CALCIUM LEVEL 9.3 MG/DL (8.8-10.2); CARBON DIOXIDE LEVEL 29 MEQ/L (21-32); CHLORIDE LEVEL 109 MEQ/L (98-107); CREATININE FOR GFR 1.14 MG/DL (0.70-1.30); GLOMERULAR FILTRATION RATE > 60.0 (>42); GLUCOSE, FASTING 86 MG/DL (70-100); SODIUM LEVEL 143 MEQ/L (136-145)
== END ==
LOC: M WUC 09:28
PROVIDERS: ATTEND Internal Medicine Cardiovascular Disease
DX: I20.0 Unstable angina (principal); Z95.5 Presence of coronary angioplasty implant and graft; I10 Essential (primary) hypertension

== ENCOUNTER → 2021-01-12 | Outpatient (CLI) | payer MEDICARE ==
--- NOTE | 2021-01-12 09:34 | REP ---
INDICATION: SCREENING FOR LUNG CA. COMPARISON: Multiple the latest 12/07/2019 the standard contrast-enhanced chest CT TECHNIQUE: Axial noncontrast images from the thoracic inlet to the upper abdomen using low-dose lung screening technique (LDCT). As per the protocol only lung window images were sent to the read station for interpretation. FINDINGS: Once again, there is rather heavy appearing asymmetric biapical pleuroparenchymal scarring. The appearance of this has remained stable since 04/18/2016 low-dose screening lung CT. In the right upper lobe there is an unchanged 7 mm sized subpleural nodule. Emphysematous changes are again seen throughout the lung ramsay with biapical predominance status quo. No new abnormal nodules, masses, or opacities have developed. Grossly, the mediastinum and pulmonary carloz are unchanged. Grossly, the imaged upper abdomen and imaged osseous structures are unchanged. IMPRESSION: Stable findings as described above. Lung rads category 2. Annual CT screening of the lungs is recommended as per the revised Fleischner society criteria. <Electronically signed by Speedy Estrada > 01/12/21 9519
== END ==
LOC: M RAD 09:05
PROVIDERS: ATTEND Internal Medicine Pulmonary Disease
DX: Z12.2 Encounter for screening for malignant neoplasm of respiratory organs (principal); R91.1 Solitary pulmonary nodule; R91.8 Other nonspecific abnormal finding of lung field; Z87.891 Personal history of nicotine dependence

== ENCOUNTER → 2021-02-26 | Outpatient (REF) | payer MEDICARE ==
[2021-02-26 14:59] LABS: BLOOD UREA NITROGEN 16 MG/DL (7-18); CREATININE FOR GFR 1.11 MG/DL (0.70-1.30); GLOMERULAR FILTRATION RATE > 60.0 (>42)
== END ==
LOC: M LAB REF 13:25
PROVIDERS: ATTEND Internal Medicine Pulmonary Disease
DX: J47.9 Bronchiectasis, uncomplicated (principal)

== ENCOUNTER → 2021-02-27 | Outpatient (CLI) | payer MEDICARE ==
--- NOTE | 2021-02-28 08:52 | REP ---
INDICATION: OTHER SPRAIN OF LEFT INDEX FINGER, INTIAL ENCOUNTER. COMPARISON: None. TECHNIQUE: Four views of the left hand are provided. FINDINGS: Four views of the left hand demonstrate overall normal mineralization. There is subcortical cyst formation and some sclerosis in the proximal pole of the navicula and in the adjacent lunate bone at the carpus. This is consistent with scapholunate arthropathy with associated cyst formation. There is mild degenerative narrowing of the 3rd MCP joint space. Minimal spurring is seen in the DIP joints of the index and long fingers. No erosive changes seen. No fracture is noted. No opaque foreign body noted. 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 Sclerosis and subcortical cyst formation at the navicular-lunate articulation in the wrist. <Electronically signed by Kai White > 02/28/21 0828
== END ==
LOC: M RAD 19:19
PROVIDERS: ATTEND Physician Assistant
DX: S63.691A Other sprain of left index finger, initial encounter (principal); X58.XXXA Exposure to other specified factors, initial encounter; Y92.9 Unspecified place or not applicable; Y93.9 Activity, unspecified; Y99.9 Unspecified external cause status; M15.1 Heberden's nodes (with arthropathy)

== ENCOUNTER → 2021-03-10 | Outpatient (CLI) | payer MEDICARE ==
--- NOTE | 2021-03-12 16:26 | SLEEPCENT ---
DATE: 03/10/2021 PROCEDURE: Nocturnal polysomnography CPAP retitration. ORDERED BY: Dr. Stu Ryan. Nocturnal polysomnography was performed for the titration of pressure therapy in this patient with obstructive sleep apnea syndrome. For testing, a ResMed AirFit F10 full face mask of large size was used. 4 cm of water pressure were initially applied to the circuit, and the lights were extinguished. 8 hours and 16 minutes of data were reviewed. There were 375.5 minutes of sleep identified. Sleep latency was short at 11.5 minutes. REM latency was mildly delayed at 190 minutes. Sleep architecture improved late in the study. There were 3 REM cycles noted. Overall sleep efficiency was 76.9%. The electrocardiogram showed a sinus rhythm with an average heart rate of 60 beats per minute. Rate ranged 50 to 90. EEG showed normal waveforms for wake and sleep. Persistence of respiratory events and patterning prompted increases in CPAP. On retrospective review of this study, best sleep was seen at a CPAP pressure of +10 with which the patient slept through REM with only minor respiratory variability and no significant oxygen desaturation. Significant activity was noted in the limb leads with 4 chains of 30 events. The limb movement arousal index was only 3.8. IMPRESSION: Obstructive sleep apnea syndrome (G47.33). RECOMMENDATION: Nightly use of pressure therapy, 10 cm of water. cc: LINWOOD PEREA MD
== END ==
LOC: M SLEEP 20:00
PROVIDERS: ATTEND Internal Medicine Pulmonary Disease
DX: G47.33 Obstructive sleep apnea (adult) (pediatric) (principal)

== ENCOUNTER → 2021-03-13 | Outpatient (CLI) | payer MEDICARE ==
[~2021-03-13] MED LIST changes: +ISOVUE-370 76% 100ML VIAL As Ordered ONE
--- NOTE | 2021-03-13 12:54 | REP ---
INDICATION: BRONCHOLETCSIS COMPARISON: Multiple the latest 01/12/2021 a low-dose screening CT of the lungs TECHNIQUE: Standard helical technique after the intravenous administration of 100 cc Isovue 370 FINDINGS: The mediastinum and pulmonary carloz are stable. No mass or adenopathy has developed. There are no pleural or pericardial effusions. The imaged upper abdomen and imaged osseous structures are stable. Chronic spinal degenerative changes are again noted status quo. Evaluation of the lung ramsay shows stable appearing heavy biapical pleuroparenchymal scarring with parenchymal bulla and pleural blebs. Emphysematous changes are again noted with scattered parenchymal bulla heaviest in the mid and upper lung zones. There is stable appearing cylindrical bronchiectasis. No new abnormal nodules, masses, or opacities have developed. IMPRESSION: Stable appearing chronic changes as described above. There is no revised Fleischner society criteria on the recommendation for follow-up of such findings. Follow-up should be based on clinical assessment. <Electronically signed by Speedy Estrada > 03/13/21 0774
== END ==
LOC: M RAD 10:53
PROVIDERS: ATTEND Internal Medicine Pulmonary Disease
DX: J47.9 Bronchiectasis, uncomplicated (principal); J43.9 Emphysema, unspecified
CPT/HCPCS: 71260; Q9967

== ENCOUNTER → 2021-07-04 | Outpatient (CLI) | payer MEDICARE ==
[~2021-07-04] MED LIST changes: -ISOVUE-370 76% 100ML VIAL As Ordered ONE
--- NOTE | 2021-07-04 11:18 | REP ---
INDICATION: LT HAND PAIN. COMPARISON: 02/27/2021 TECHNIQUE: Four views FINDINGS: There is no change from the prior exam. There is no acute fracture, dislocation, or subluxation. Chronic changes are again seen involving the carpus status quo along with stable chronic changes seen involving the D IP joints of the 2nd and 3rd digits status quo. IMPRESSION: No significant change <Electronically signed by Speedy Estrada > 07/04/21 1110
== END ==
LOC: M SOG 10:24
PROVIDERS: ATTEND Orthopaedic Surgery Hand Surgery
DX: M79.642 Pain in left hand (principal)

== ENCOUNTER → 2021-07-18 | Outpatient (CLI) | payer MEDICARE ==
[~2021-07-18] MED LIST changes: +LOSA100T45 PO; -LOSA100T50 PO
[2021-07-18 15:24] LABS: FREE T4 1.08 NG/DL (0.76-1.46); THYROID STIMULATING HORMONE 2.21 uIU/ML (0.358-3.740)
== END ==
LOC: M PLALAB 11:21
PROVIDERS: ATTEND Family Medicine
DX: E03.9 Hypothyroidism, unspecified (principal)

== ENCOUNTER → 2021-09-27 | Outpatient (CLI) | payer MEDICARE ==
[~2021-09-27] MED LIST changes: +ANOR1AER INH; +ASPI81TA26 PO; +COLC0.6T47 PO; +SYNT50TA PO; +VITA100093 PO
== END ==
LOC: M LABSMTC 11:34
PROVIDERS: ATTEND Anesthesiology
DX: Z01.812 Encounter for preprocedural laboratory examination (principal); Z20.822 Contact with and (suspected) exposure to COVID-19

== ENCOUNTER 2021-10-02 10:31 | Day surgery (SDC) | payer MEDICARE ==
[~2021-10-02] VITALS: Ht 172.7 cm; Wt 80.3 kg
[~2021-10-02 10:31] MED LIST changes: +NS 1,000 ML IV ONE
[2021-10-02] MEDS ORDERED: ePHEDrine INJ 50 MG/ML VIAL As Ordered ONE (12:26)
[2021-10-02] MEDS ORDERED: propofoL 200 MG/20 ML VIAL As Ordered ONE (12:30)
[2021-10-02] MEDS ORDERED: LIDOCAINE 2% 100MG/5ML SDV (FOR ANES.) As Ordered ONE (12:32)
[2021-10-02 13:02] VITALS: BP 129/61
== END 2021-10-02 13:05 | disposition home or self-care (01) ==
LOC: M OPP 10:31
PROVIDERS: ATTEND Internal Medicine Gastroenterology
DX: Z12.11 Encounter for screening for malignant neoplasm of colon (principal); Z86.010 Personal history of colon polyps; K63.5 Polyp of colon; K57.30 Diverticulosis of large intestine without perforation or abscess without bleeding; K64.8 Other hemorrhoids; Z79.82 Long term (current) use of aspirin; Z79.899 Other long term (current) drug therapy; Z88.5 Allergy status to narcotic agent; Z88.8 Allergy status to other drugs, medicaments and biological substances; Z80.1 Family history of malignant neoplasm of trachea, bronchus and lung; Z87.891 Personal history of nicotine dependence; Z95.5 Presence of coronary angioplasty implant and graft

== ENCOUNTER → 2021-12-05 | Outpatient (REF) | payer MEDICARE ==
[~2021-12-05] MED LIST changes: -NS 1,000 ML IV ONE
[2021-12-05 13:04] LABS: HEMATOCRIT 40.8 % (42.0-52.0); MEAN CORPUSCULAR HEMOGLOBIN 31.9 pg (27.0-33.0); MEAN CORPUSCULAR HGB CONC 34.3 g/dl (32.0-36.5); MEAN CORPUSCULAR VOLUME 92.9 fl (80.0-96.0); PLATELET COUNT, AUTOMATED 229 10^3/uL (150-450); RED BLOOD COUNT 4.39 10^6/uL (4.30-6.10); WHITE BLOOD COUNT 5.5 10^3/uL (4.0-10.0)
[2021-12-05 13:28] LABS: HEMOGLOBIN A1c 5.4 %
[2021-12-05 13:44] LABS: ALBUMIN 3.9 GM/DL (3.2-5.2); BILIRUBIN,TOTAL 0.5 MG/DL (0.2-1.0); CALCIUM LEVEL 9.9 MG/DL (8.8-10.2); CHOLESTEROL RISK RATIO 2.808 (<5); CREATININE FOR GFR 1.27 MG/DL (0.70-1.30); FREE T4 1.03 NG/DL (0.76-1.46); GLOMERULAR FILTRATION RATE 59.2 (>42); POTASSIUM SERUM 4.1 MEQ/L (3.5-5.1); THYROID STIMULATING HORMONE 3.77 uIU/ML (0.358-3.740)
== END ==
LOC: M SFHCADAM 08:41
PROVIDERS: ATTEND Family Medicine
DX: E78.2 Mixed hyperlipidemia (principal); I11.9 Hypertensive heart disease without heart failure; J84.10 Pulmonary fibrosis, unspecified; E03.9 Hypothyroidism, unspecified; Z13.1 Encounter for screening for diabetes mellitus; Z12.5 Encounter for screening for malignant neoplasm of prostate; Z79.899 Other long term (current) drug therapy

== ENCOUNTER → 2022-06-07 | Outpatient (CLI) | payer MEDICARE | LOC: M RAD 10:03 | PROVIDERS: ATTEND Family Medicine | DX: J47.9 Bronchiectasis, uncomplicated (principal) ==

== ENCOUNTER → 2022-09-16 | Outpatient (REF) | payer MEDICARE | LOC: M WUC 12:15 | PROVIDERS: ATTEND Nurse Practitioner Family | DX: J06.9 Acute upper respiratory infection, unspecified (principal) ==

== ENCOUNTER → 2022-10-15 | Outpatient (CLI) | payer MEDICARE | LOC: M PLAIMG 10:22 | PROVIDERS: ATTEND Internal Medicine Pulmonary Disease | DX: J43.9 Emphysema, unspecified (principal); J47.1 Bronchiectasis with (acute) exacerbation ==

== ENCOUNTER 2023-02-25 11:31 | Emergency (ER) | payer MEDICARE ==
[~2023-02-25] VITALS: Ht 172.7 cm; Wt 82.6 kg
[~2023-02-25 11:31] MED LIST changes: -LOSA100T45 PO; +LOSA100T46 PO
[2023-02-25] MEDS ORDERED: FLUORESCEIN OPHTH 1MG STRIP OS ONE (14:05)
[2023-02-25] MEDS ORDERED: PROPARACAINE 0.5% OPHTH SOL 15ML OS ONE (14:05)
[2023-02-25] MEDS ORDERED: REFR0.5D8 OP (15:16)
[2023-02-25 15:21] VITALS: BP 131/70; TEMP 98; O2SAT 100
== END 2023-02-25 15:22 | disposition home or self-care (01) ==
LOC: M ED 11:31
DX: H11.32 Conjunctival hemorrhage, left eye (principal); I25.2 Old myocardial infarction; I10 Essential (primary) hypertension; J44.9 Chronic obstructive pulmonary disease, unspecified; G47.33 Obstructive sleep apnea (adult) (pediatric); Z86.73 Personal history of transient ischemic attack (TIA), and cerebral infarction without residual deficits; Z79.82 Long term (current) use of aspirin; Z79.899 Other long term (current) drug therapy; Z88.5 Allergy status to narcotic agent; Z88.8 Allergy status to other drugs, medicaments and biological substances

== ENCOUNTER → 2023-02-28 | Outpatient (CLI) | payer MEDICARE ==
[~2023-02-28] MED LIST changes: +REFR0.5D8 OP
[2023-02-28 11:03] LABS: HEMATOCRIT 44.3 % (42.0-52.0); HEMOGLOBIN 14.7 g/dl (13.5-17.5); MEAN CORPUSCULAR HEMOGLOBIN 30.2 pg (27.0-33.0); MEAN CORPUSCULAR HGB CONC 33.2 g/dl (32.0-36.5); PLATELET COUNT, AUTOMATED 237 10^3/uL (150-450); RED BLOOD COUNT 4.87 10^6/uL (4.30-6.10); WHITE BLOOD COUNT 6.1 10^3/uL (4.0-10.0)
[2023-02-28 11:11] LABS: ALBUMIN 4.2 G/DL (3.2-5.2); BILIRUBIN,TOTAL 0.5 MG/DL (0.3-1.2); CALCIUM LEVEL 9.2 MG/DL (8.3-10.6); CHOLESTEROL RISK RATIO 3.04 (<5); CREATININE FOR GFR 1.31 MG/DL (0.70-1.30); FREE T4 1.12 NG/DL (0.89-1.76); GLOMERULAR FILTRATION RATE 56.9 (>42); HDL CHOLESTEROL 41.4 MG/DL (>40); LDL CHOLESTEROL 55.4 MG/DL (<100); NON-HDL-C 84.6 MG/DL; POTASSIUM SERUM 4.4 MMOL/L (3.5-5.1); TOTAL PROTEIN 7.2 G/DL (5.7-8.2)
[2023-02-28 11:14] LABS: THYROID STIMULATING HORMONE 6.367 uIU/ML (0.55-4.78)
== END ==
LOC: M PLALAB 08:07
PROVIDERS: ATTEND Family Medicine
DX: E78.2 Mixed hyperlipidemia (principal); Z12.5 Encounter for screening for malignant neoplasm of prostate; E03.9 Hypothyroidism, unspecified; J84.10 Pulmonary fibrosis, unspecified
CPT/HCPCS: 36415; 80053; 80061; 84439; 84443; 85027; G0103

== ENCOUNTER → 2023-07-25 | Outpatient (CLI) | payer MEDICARE, OTHER ==
[~2023-07-25] MED LIST changes: +PRED20TA PO
== END ==
LOC: M RAD 10:44
PROVIDERS: ATTEND Internal Medicine
DX: M51.16 Intervertebral disc disorders with radiculopathy, lumbar region (principal)

== ENCOUNTER → 2024-03-25 | Outpatient (CLI) | payer MEDICARE ==
[2024-03-25 11:00] LABS: CREATININE FOR GFR 1.36 MG/DL (0.70-1.30); GLOMERULAR FILTRATION RATE 54.4 (>42)
== END ==
LOC: M PLALAB 07:59
PROVIDERS: ATTEND Physician Assistant
DX: I65.23 Occlusion and stenosis of bilateral carotid arteries (principal); I73.9 Peripheral vascular disease, unspecified; Z95.828 Presence of other vascular implants and grafts

== ENCOUNTER → 2024-03-29 | Outpatient (CLI) | payer MEDICARE ==
[~2024-03-29] MED LIST changes: +ISOVUE-370 76% 100ML VIAL ONE
== END ==
LOC: M PLAIMG 08:57
PROVIDERS: ATTEND Physician Assistant
DX: I65.23 Occlusion and stenosis of bilateral carotid arteries (principal); I73.9 Peripheral vascular disease, unspecified; Z95.820 Peripheral vascular angioplasty status with implants and grafts; Z95.828 Presence of other vascular implants and grafts; J43.9 Emphysema, unspecified; M47.812 Spondylosis without myelopathy or radiculopathy, cervical region
CPT/HCPCS: 70498; Q9967

== ENCOUNTER → 2024-03-30 | Outpatient (REF) | payer MEDICARE ==
[~2024-03-30] MED LIST changes: -ISOVUE-370 76% 100ML VIAL ONE
== END ==
LOC: M SFHCADAM 15:16
PROVIDERS: ATTEND Family Medicine
DX: J06.9 Acute upper respiratory infection, unspecified (principal)

== ENCOUNTER → 2024-07-26 | Outpatient (CLI) | payer MEDICARE | LOC: M EKG 09:47 | PROVIDERS: ATTEND Physician Assistant | DX: R00.2 Palpitations (principal) ==

== ENCOUNTER → 2025-01-10 | Outpatient (CLI) | payer MEDICARE ==
[~2025-01-10] MED LIST changes: -FLOM0.4C39 PO; -PRAV40TA2 PO; +PRAV40TA85 PO; +TAMS-18 PO
== END ==
LOC: M RAD 09:09
PROVIDERS: ATTEND Internal Medicine Pulmonary Disease
DX: J44.9 Chronic obstructive pulmonary disease, unspecified (principal)

== ENCOUNTER → 2025-01-19 | Outpatient (CLI) | payer MEDICARE | LOC: M RAD 15:58 | PROVIDERS: ATTEND Registered Nurse | DX: S50.12XA Contusion of left forearm, initial encounter (principal); X58.XXXA Exposure to other specified factors, initial encounter; Y92.9 Unspecified place or not applicable; Y93.9 Activity, unspecified; Y99.9 Unspecified external cause status ==

== ENCOUNTER → 2025-06-17 | Outpatient (REF) | payer MEDICARE ==
[~2025-06-17] MED LIST changes: -COLC0.6T47 PO; +COLC0.6T53 PO
[2025-06-17 17:37] LABS: PLATELET COUNT, AUTOMATED 231 10^3/uL (150-450)
[2025-06-17 18:03] LABS: FREE T4 1.36 NG/DL (0.89-1.76)
[2025-06-17 18:07] LABS: ESTIMATED AVERAGE GLUCOSE 100.0 MG/DL (60-110)
[2025-06-17 18:43] LABS: ALT/SGPT 22.0 U/L (7.0-40); AST/SGOT 21.0 U/L (<34); CALCIUM LEVEL 8.9 MG/DL (8.3-10.6); CARBON DIOXIDE LEVEL 28.0 MMOL/L (20-31); CHLORIDE LEVEL 104.0 MMOL/L (98-107); CHOLESTEROL LEVEL 99.0 MG/DL (<200); CHOLESTEROL RISK RATIO 2.36 (<5); CREATININE FOR GFR 1.3 MG/DL (0.70-1.30); GLOMERULAR FILTRATION RATE 56.9 (>42); LDL CHOLESTEROL 9.6 MG/DL (<100); NON-HDL-C 57.2 MG/DL; POTASSIUM SERUM 4.3 MMOL/L (3.5-5.1); SODIUM LEVEL 142.0 MMOL/L (136-145); TRIGLYCERIDES LEVEL 238.0 MG/DL (<150)
== END ==
LOC: M SFHCADAM 14:52
PROVIDERS: ATTEND Family Medicine
DX: R07.9 Chest pain, unspecified (principal); E03.9 Hypothyroidism, unspecified; E78.2 Mixed hyperlipidemia; I73.9 Peripheral vascular disease, unspecified; Z79.899 Other long term (current) drug therapy